=== PATIENT | male | born 1995 | race Caucasian/White ===

== ENCOUNTER 2023-10-21 22:35 | Emergency (ER) | payer SELFPAY ==
[2023-10-21 22:37] VITALS: BP 156/99; PULSE 84; RESP 16; TEMP 36.2; O2SAT 98; BMI 29.5
[2023-10-21 23:07] VITALS: BP 144/74; PULSE 97; RESP 17; TEMP 36.6; O2SAT 99
--- NOTE | 2023-10-21 23:16 | EDS_ITS ---
HPI History of Present Illness Chief Complaint: Dental Informant: patient Narrative Narrative: 28-year-old male with a longstanding history of dental problems, he states the teeth that are bothering him now which are right maxillary molars have been bothering him for around 2 years total but the pain is out of control starting today spontaneously, he is having trouble getting to sleep because the pain is so severe when he lies down, he cannot chew, he states he is putting crackers in his mouth and letting them dissolve in saliva before he tries to swallow them, he is not any fevers or swelling or discharge in his mouth. Has been taking Tylenol and ibuprofen today and states it is not helping at all. PFSH PFSH no medical history Home Medications ?Medication ?Instructions ?Recorded ?Last Taken ?Type amoxicillin 500 mg tablet 500 mg PO TID #30 tabs 10/21/23 Unknown Rx oxycodone-acetaminophen 5 mg-325 1 tab PO Q6H PRN PRN Pain 4 days 10/21/23 Unknown Rx mg tablet #15 TABLETS Allergy/AdvReac Type Severity Reaction Status Date / Time No Known Allergies Allergy Verified 10/21/23 22:37 Social History Smoking Status: Never smoker ROS ROS ED Constitutional Constitutional ED: Denies chills or fever(s) Eyes Eyes: Denies change in vision or double vision ENT ENT ED: Reports dental pain; Denies sinus pain or throat swelling Cardiovascular Cardiovascular: Denies chest pain or palpitations Respiratory/Chest Respiratory/Chest: Denies cough or dyspnea Integumentary Denies abscess or rash Neurologic Neurologic: Denies headache(s), paresthesias or weakness EXAM Physical Exam Const Vital Signs: 10/21/23 22:37 10/21/23 23:07 Temperature 97.1 F L 97.9 F Temperature Source Temporal Pulse Rate 84 97 Respiratory Rate 16 17 Blood Pressure 156/99 H 144/74 H Blood Pressure Mean 118 97 Pulse Ox 98 99 Oxygen Delivery Method Room Air Positive well nourished and well developed General Appearance ED: well developed and NAD HEENT HEENT Narrative: There is obvious decay of teeth numbers 1 and 2, and they are both tender, #2 giving him the most pain. There is no associated abscess. No trismus. No bleeding or discharge from the affected teeth. Face and Sinus: sinuses nontender Throat: posterior oropharynx normal Eyes PERRL and EOMs intact bilaterally Neck no lymphadenopathy and supple Resp normal respiratory effort Neuro oriented x3 and CN's II-XII intact bilaterally Sensorium / Orientation: alert Gait (Neuro): normal gait Psych mental status grossly normal and thought process normal Skin no rashes or lesions noted and no wounds MDM MDM MDM Narrative Medical decision making narrative: Patient has a negative [place] [facility] report, I am giving him a prescription for some Percocet, but since he drove here I am only giving him an amoxicillin to take right now and our pharmacy is going to fill prescriptions for amoxicillin and Percocet for him and he can take them when he gets home he is comfortable with that plan. Discharge Plan Triage Chief Complaint: Dental ED Provider: Chase Mclean Dx/Rx/DC Orders Clinical Impression: Pain due to dental caries Instructions: ED Dental Pain Prescriptions: New amoxicillin 500 mg tablet 500 mg PO TID Qty: 30 0RF oxycodone-acetaminophen 5-325 mg tablet 1 tab PO Q6H PRN PRN (Reason: Pain) 4 Days Qty: 15 0RF Primary Care Provider: Care Physician,No Primary Referrals: Isha Larson [Non-Staff] - As soon as possible Print Language: Marshallese Disposition Disposition: Home, Self Care
[2023-10-21] MEDS: AMOXICILLIN 500 MG CAPSULE PO (23:28)
== END 2023-10-21 23:34 | disposition home or self-care (01) ==
PROVIDERS: Emergency Provider Emergency Medicine; Visit Provider Emergency Medicine
DX: K02.9 Dental caries, unspecified (principal)
CPT/HCPCS: 99282